=== PATIENT | female | born 2000 | race Caucasian/White ===

== ENCOUNTER 2019-08-01 13:09 | Emergency (ER) | payer OTHER, SELFPAY ==
--- NOTE | ~2019-08-01 | XR_ITS ---
XR finger 3rd LT min 2V DATE: 08/01/2019 13:49 INDICATION: Injury, pain TECHNIQUE: 4 views COMPARISON: None FINDINGS: No fracture or dislocation. No periosteal reaction or bone destruction. IMPRESSION: Negative Reviewed, dictated and finalized at location B. [employer] IMPRESSION: Negative
[2019-08-01 13:13] VITALS: BP 118/72; PULSE 71; RESP 16; TEMP 36.8; O2SAT 100
--- NOTE | 2019-08-01 13:17 | ED.UPPEXIN ---
HPI - Extremity Injury (Upper) General Chief Complaint: Extremity Injury, Upper Stated Complaint: LEFT 3RD FINGER INJURY Time Seen by Provider: 08/01/19 13:12 Source: patient Mode of arrival: ambulatory Limitations: no limitations History of Present Illness HPI narrative: 18-year-old female presents to urgent care with complaints of pain, swelling and minimal bruising to her left third finger. Patient reports that she was cheerleading when she sustained a jamming injury to her finger 2 days ago. Patient has not tried taking any zllu-gai-gaftril medications. Patient denies erythema, numbness or tingling. MD complaint: injury to: left and finger (3rd ) Onset (ago): day(s) (2) Other Extremity Injury: Left: fingers (middle finger ) Other injuries: none Place: school Relieving factors: none Exacerbating factors: movement of extremity Associated symptoms: denies other symptoms Related Data Home Medications Medication Instructions Recorded Confirmed No Home Medications 08/01/19 08/01/19 Allergies Allergy/AdvReac Type Severity Reaction Status Date / Time No Known Allergies Allergy Unverified 07/18/11 13:35 Review of Systems Review of Systems: All systems reviewed & are unremarkable except as noted in HPI and below Constitutional: Constitutional: Denies chills, Denies fever(s) and Denies weakness Cardiovascular: Cardiovascular: Denies chest pain and Denies radiating jaw, neck or arm pain Respiratory: Respiratory: Denies cough and Denies dyspnea Gastrointestinal: Gastrointestinal: Denies abdominal pain, Denies diarrhea, Denies nausea and Denies vomiting Musculoskeletal: Musculoskeletal: Reports as per HPI and Reports arthralgias Comments: pain and mils swelling noted to left 3rd finger Neurologic: Denies vertigo, Denies dizziness and Denies syncope Endocrine: Endocrine: Denies fatigue PMFSH Family History Family History Mother Hypertension Grandparent Family history of lung cancer Social History Social History Smoking status: Never smoker Alcohol intake: never Exam Const: General: healthy appearing, no acute distress and alert Nutritional Appearance: well nourished Orientation/consciousness: patient oriented x3 Eyes: Pupils: Equal, round and reactive pupils present Neck: Neck: normal visual inspection and no lymphadenopathy Resp: Effort & Inspection: normal respiratory effort and not tachypneic Auscultation: clear to auscultation bilaterally Cardio: Rate: regular rate Rhythm: regular rhythm Heart sounds: no murmurs Skin: General skin exam: normal color, no jaundice and no pallor Rashes: no rashes Neuro: General: patient oriented x3 and moves all extremities Extrem: General: no pedal edema Other: mild pain and swelling noted to left 3rd finger. There is mild amount of bruising noted to posterior aspect of left third finger. There is no erythema or signs of infection noted. Full range of motion noted finger. Course Vital Signs Vital signs: Vital Signs Temperature 36.8 C 08/01/19 13:13 Pulse Rate 71 08/01/19 13:13 Respiratory Rate 16 08/01/19 13:13 Blood Pressure 118/72 08/01/19 13:13 Pulse Oximetry 100 08/01/19 13:13 Temperature 36.8 C 08/01/19 13:13 Pulse Rate 71 08/01/19 13:13 Respiratory Rate 16 08/01/19 13:13 Blood Pressure 118/72 08/01/19 13:13 Pulse Oximetry 100 08/01/19 13:13 MDM - Extremity Injury (Upper) MDM Narrative Medical decision making narrative: Finger splint applied to left middle finger. Rice therapy discussed with patient and mother. Mother agrees to have patient follow-up with orthopedics if symptoms not improve Differential Diagnosis Differential diagnosis: Likely other (Fracture, cellulitis, abrasion) Imaging Data Radiologist's impression: No fracture of left third finger per radiologist [facility]
== END 2019-08-01 14:02 | disposition home or self-care (01) ==
PROVIDERS: Emergency Provider Nurse Practitioner Family; PCP Pediatrics
DX: M79.645 Pain in left finger(s) (principal)
CPT/HCPCS: 29130; 73140; 99213; G0463

== ENCOUNTER 2020-02-04 14:14 | Emergency (ER) | payer OTHER, SELFPAY ==
--- NOTE | ~2020-02-04 | CT_ITS ---
EXAMINATION: CT facial bones w con DATE: 02/04/2020 15:09 INDICATION: Right facial swelling. TECHNIQUE: Computed tomography (CT) of the facial bones and maxillofacial region was performed with 7 5 mL Omnipaque 350 intravenous contrast. Automated exposure control and iterative reconstruction tech [employer] were employed. The dose-length product was 285.32 mGy-cm. COMPARISON: None. FINDINGS: There is asymmetric fat stranding in the right cheek, consistent with edema. No abscess. Th ere is mild mucosal thickening in left maxillary sinus. There are changes of extractions of teeth 1, 16, 17, and 32. No fracture. IMPRESSION: 1. Right cheek soft tissue swelling status post extraction of the wisdom teeth. Reviewed, dictated and finalized at location B.
[2020-02-04 14:16] VITALS: BP 136/101; PULSE 113; RESP 15; TEMP 37.1; O2SAT 100
--- NOTE | 2020-02-04 14:20 | ED.GENADULT ---
HPI - General Adult General Chief complaint: Unspecified Stated complaint: facial swelling Time Seen by Provider: 02/04/20 14:20 Source: patient and family Mode of arrival: ambulatory Limitations: no limitations History of Present Illness HPI narrative: Patient is a 19-year-old female referred to this facility by her primary care physician for evaluation of right-sided facial swelling. Patient states that she awakened this morning, and felt that her right eye was puffy, looked into the mirror and felt that the entire right side of her face was very swollen. Patient denies itching, no history of allergic reaction, no new soaps, lotions or detergents. She denies eye pain or visual changes. She denies fever or chills. Patient did recently travel to the [facility] where she has been hiking, but denies any known tick bites or envenomations. No tooth pain, mouth pain although she does report a history of wisdom tooth removal 6 weeks ago. Patient denies any difficulty with chewing. Noted at the opening her mouth. No neck swelling. Patient without history of allergic reaction in the past. No family history of angioedema. Related Data Allergies Allergy/AdvReac Type Severity Reaction Status Date / Time No Known Allergies Allergy Verified 02/04/20 14:18 Review of Systems Review of Systems: Narrative: CONSTITUTIONAL: Denies fever, chills, or sweats. EYES: Denies visual changes, redness, or discharge. ENT: Denies rhinorrhea, congestion, sore throat, or otalgia. CARDIOVASCULAR: Denies chest pain, palpitations, or edema. RESPIRATORY: Denies cough or dyspnea. GASTROINTESTINAL: Denies abdominal pain, nausea, vomiting, or diarrhea. GENITOURINARY: Denies dysuria or hematuria. SKIN: Denies rash or itching. Reports right-sided facial swelling. MUSCULOSKELETAL: Denies back pain, joint pain, or myalgia. NEUROLOGIC: Denies headache, numbness, or weakness. [facility] Past Medical History Medical History No pertinent past medical history Surgical History Surgical History (Updated 02/04/20 @ 14:34 by Louise Ayers MD) H/O anterior cruciate ligament surgery H/O wisdom tooth extraction Family History Family History Mother Hypertension Grandparent Family history of lung cancer Social History Social History Smoking status: Never smoker Alcohol intake: never Gender identity (if verbalized by the patient): Female Exam Narrative: Exam Narrative: GENERAL: Awake, alert, conversant HEAD: Right-sided facial edema that begins inferior to the right eye extending into right maxillary mandibular area. Mild erythema, no warmth. Right inferior orbital edema present. EYES: 2+ PERRLA and EOMI. no conjunctivitis, no conjunctival injection or discharge. No pain with extraocular movements. No palsy. ENT: Nares clear, no rhinorrhea or epistaxis. Mucous membranes moist. No trismus. Uvula is midline. Teeth appear normal. NECK: Supple. CHEST: No respiratory distress, breathing even and non labored HEART: Regular rate, sinus rhythm ABDOMEN:Non distended, non tender EXTREMITIES: Normal range of motion. No edema. SKIN: Warm, dry, no rash. NEURO:No focal deficits. Alert and oriented x3 Course Vital Signs Vital signs: Vital Signs Temperature 37.1 C 02/04/20 14:16 Pulse Rate 113 H 02/04/20 14:16 Respiratory Rate 15 02/04/20 14:16 Blood Pressure 136/101 H 02/04/20 14:16 Pulse Oximetry 100 02/04/20 14:16 Temperature 37.1 C 02/04/20 14:16 Pulse Rate 113 H 02/04/20 14:16 Respiratory Rate 15 02/04/20 14:16 Blood Pressure 136/101 H 02/04/20 14:16 Pulse Oximetry 100 02/04/20 14:16 Medical Decision Making MDM Narrative Medical decision making narrative: Patient is a 19-year-old female with a remote history of wisdom tooth extraction who presented wi
[2020-02-04] MEDS: methylPREDNISolone SOD SUCC 125 MG VIAL IV PUSH (14:34)
[2020-02-04] MEDS: FAMOTIDINE 20 MG/2 ML VIAL IV PUSH (14:35)
[2020-02-04] MEDS: diphenhydrAMINE HCl INJ 50 MG/ML VIAL 25 MG IV PUSH (14:35)
[2020-02-04 14:50] LABS: Basophils Percent Auto 0.6 % (0.2-1.2); Hematocrit 44.4 % (37.0-47.0); Hemoglobin 14.8 g/dL (12.0-15.0); Immature Granulocyte Absolute 0.01 K/mm3 (0.00-0.031); Immature Granulocyte Percent A 0.2 % (0-0.5); Lymphocytes Absolute Auto 1.45 K/mm3 (0.9-3.2); Lymphocytes Percent Auto 29.1 % (18.3-44.2); Mean Corpuscular HGB Conc 33.3 g/dl (32-36); Mean Corpuscular Hemoglobin 28.8 pg (26-34); Mean Corpuscular Volume 86.5 fl (80-100); Mean Platelet Volume 9.9 fl (7.4-10.4); Monocytes Absolute Auto 0.6 K/mm3 (0.1-0.6); Monocytes Percent Auto 11.6 % (2.6-8.5); Neutrophils Absolute Auto 2.9 K/mm3 (1.3-6.7); Neutrophils Percent Auto 58.5 % (45.5-73.1); Platelet Count Result 232 k/mm3 (150-375); Red Blood Count 5.13 M/mm3 (4.2-5.4); Red Cell Distribution Width 12.6 % (11.5-14.5)
[2020-02-04 15:03] LABS: Add Urine Microscopic? YES; Appearance Urine Cloudy (Clear); Bacteria Urine 2+ /hpf; Bilirubin Urine Negative (Negative); Blood Urine Negative (Negative); Color Urine Yellow (Yellow); Glucose Urine UA Negative (Negative); Ketones Urine Negative (Negative); Leukocyte Esterase Ur Negative LEU/UL (Negative); Mucus Urine Moderate /lpf; Nitrate Urine Negative (Negative); Protein Urine 1+ mg/dL (Negative); Squamous Epithelial Cell Urine Many /hpf (Few); Urobilinogen Urine Negative mg/dL (<2.0)
[2020-02-04 15:04] LABS: Alanine Aminotransferase 29 U/L (4-35); Albumin Level 5.1 g/dL (3.5-5.1); Alkaline Phosphatase 87 U/L (38-126); Anion Gap 11 mmol/L (8-16); Aspartate Amino Transferase 34 U/L (14-36); Bilirubin,Total 0.2 mg/dL (0.2-1.3); Blood Urea Nitrogen 13 mg/dL (7-17); CRP < 0.5 mg/dL (<1.0); Calcium 9.4 mg/dL (8.4-10.2); Carbon Dioxide 26 mmol/L (22-30); Chloride 102 mmol/L (98-107); Estimated CRCL calculation 84 ml/min; Estimated Glomerular Filt Rate > 60; Glucose 98 mg/dL (65-105); Potassium 3.7 mmol/L (3.4-5.0); Sodium 139 mmol/L (137-145)
[2020-02-04 15:05] LABS: Specific Grav Ur 1.031 (1.001-1.035)
[2020-02-04 15:05] LABS: Estimated CRCL calculation 76 ml/min; Estimated Glomerular Filt Rate > 60
[2020-02-04 15:49] LABS: Erythrocyte Sedimentation Rate 14 mm/hr (0-20)
[2020-02-04 16:30] VITALS: BP 135/98; PULSE 105; RESP 19; O2SAT 98
== END 2020-02-04 16:31 | disposition home or self-care (01) ==
PROVIDERS: Emergency Provider Emergency Medicine; PCP Pediatrics
DX: R60.9 Edema, unspecified (principal)
CPT/HCPCS: 36415; 70487; 80053; 81001; 85025; 85652; 86140; 96374; 96375; 99284; J1200; J2930; Q9967